=== PATIENT | male | born 1990 ===

== ENCOUNTER 2017-12-13 23:39 | Emergency (ER) | payer SELFPAY ==
[2017-12-13 23:49] VITALS: BMI 23.7
--- NOTE | 2017-12-14 00:13 | ED PDOC ---
Arrival/HPI - General Historian: Patient - History of Present Illness Narrative History of Present Illness (Text): 12/14/17 00:08 42yo male bib EMS for alcohol intoxication. Per EMS patient was found intoxicated on the street and brought to Emergency department. patient admits to drinking alcohol in Emergency department. He denies any drug use. Denies any somatic complaint. <Honey Prince A - Last Filed: 12/15/17 15:36> <Lenard Menjivar - Last Filed: 12/16/17 19:21> - General Chief Complaint: Alcohol Ingestion Past Medical History - Provider Review Nursing Documentation Reviewed: Yes - Infectious Disease Hx of Infectious Diseases: None - Psychiatric Hx Substance Use: (unknown) - Anesthesia Hx Anesthesia: No <Honey Prince A - Last Filed: 12/15/17 15:36> Family/Social History - Physician Review Nursing Documentation Reviewed: Yes Family/Social History: Unknown Family HX Smoking Status: Current Some Days Smoker Hx Alcohol Use: Yes Hx Substance Use: (unknown) <Honey Prince A - Last Filed: 12/15/17 15:36> Allergies/Home Meds <Honey Prince A - Last Filed: 12/15/17 15:36> <Lenard Menjivar - Last Filed: 12/16/17 19:21> Allergies/Adverse Reactions: Allergies Unobtainable Allergy (Verified 12/13/17 23:51) Home Medications: Home Meds Medication Instructions Recorded Confirmed RX: Unobtainable 12/13/17 12/13/17 Review of Systems - Review of Systems Systems not reviewed;Unavailable: Intoxicated <Honey Prince A - Last Filed: 12/15/17 15:36> Physical Exam - Physical Exam Physical Exam Limitations: Intoxication Temperature: Afebrile Blood Pressure: Normal Pulse: Regular Respiratory Rate: Normal Appearance: Positive for: Well-Appearing, Non-Toxic, Comfortable Pain Distress: None Mental Status: Positive for: Alert and Oriented X 3 - Systems Exam Head: Present: Atraumatic, Normocephalic Pupils: Present: PERRL Extroacular Muscles: Present: EOMI Conjunctiva: Present: Normal Mouth: Present: Moist Mucous Membranes Neck: Present: Normal Range of Motion Respiratory/Chest: Present: Clear to Auscultation, Good Air Exchange. No: Respiratory Distress, Accessory Muscle Use Cardiovascular: Present: Regular Rate and Rhythm, Normal S1, S2. No: Murmurs Abdomen: No: Tenderness, Distention, Peritoneal Signs Back: Present: Normal Inspection Upper Extremity: Present: Normal Inspection. No: Cyanosis, Edema Lower Extremity: Present: Normal Inspection. No: Edema Neurological: Present: GCS=15, CN II-XII Intact, Speech Normal Skin: Present: Warm, Dry, Normal Color. No: Rashes Psychiatric: Present: Alert, Oriented x 3, Normal Insight, Normal Concentration <Honey Prince A - Last Filed: 12/15/17 15:36> Vital Signs Temp Pulse Resp BP Pulse Ox 12/14/17 05:57 80 16 143/70 98 12/14/17 03:00 80 16 124/80 99 12/14/17 01:28 89 16 130/73 96 12/14/17 00:28 97.5 F L 86 16 130/78 99 <Lenard Menjivar - Last Filed: 12/16/17 19:21> Medical Decision Making ED Course and Treatment: 12/14/17 00:13 PT presented for stated history. He became uncooperative. Refusing to remove his clothes or stay in Emergency department. Jimmy YI was called and he was placed on 4point restraint for his safety and the safety of ED staffs. Labs Alcohol level UDS Will observe pt in Emergency department for sobriety 12/14/17 01:53 Pt slept calmly in Emergency department. alcohol 128 He will be endorsed to Dr. Menjivar to reassess for sobriety and dispo. <Honey Prince A - Last Filed: 12/15/17 15:36> - Lab Interpretations Lab Results: 12/14/17 00:21 12/14/17 00:21 Lab Results 12/14/17 06:15: Urine Opiates Screen Positive H, Urine Methadone Screen Negative, Ur Barbiturates Screen Negative, Ur Phencyclidine Scrn Positive H, Ur Amphetamines Screen Negative, U Benzodiazepines Scrn Negative, U Oth Cocaine Metabols Negative, U Cannabinoids Screen Positive H 12/14/17 00:21: Alcohol, Quantitative 128 H 12/14/17 00:21: Sodium 146, Potassium 3.7, Chloride 112 H, Carbon Dioxide 20 L, Anion Gap 17, BUN 16, Creatinine 0.9, Est GFR ( Amer) > 60, Est GFR (Non- Af Amer) > 60, Random Glucose 94, Calcium 9.3, Total Bilirubin 0.3, AST 46, ALT 34, Alkaline Phosphatase 54, Total Protein 7.6, Albumin 4.5, Globulin 3.1, A lbumin/Globulin Ratio 1.4 12/14/17 00:21: PT 11.4, INR 1.00, APTT 29.4 12/14/17 00:21: WBC 8.6, RBC 4.68, Hgb 14.9, Hct 40.8 L, MCV 87.2, MCH 31.8, MCHC 36.5, RDW 12.5, Plt Count 227, MPV 9.6, Gran % 52.3, Lymph % (Auto) 39.6 H, Villalba % (Auto) 6.9 H, Eos % (Auto) 1.0 L, Baso % (Auto) 0.2, Gran # 4.51, Lymph # (Auto) 3.4, Villalba # (Auto) 0.6, Eos # (Auto) 0.1, Baso # (Auto) 0.02 <Lenard Menjivar - Last Filed: 12/16/17 19:21> - PA / LINUX SUPPORT ENGINEER / Resident Statement / has reviewed & agrees with the documentation as recorded. <Lenard Menjivar - Last Filed: 12/16/17 19:21> Disposition/Present on Arrival - Present on Arrival Any Indicators Present on Arrival: No History of DVT/PE: No History of Uncontrolled Diabetes: No Urinary Catheter: No History of Decub. Ulcer: No History Surgical Site Infection Following: None - Disposition Have Diagnosis and Disposition been Completed?: Yes Disposition Time: 06:00 Patient Plan: Discharge <Honey Prince - Last Filed: 12/15/17 15:36> <Lenard Menjivar - Last Filed: 12/16/17 19:21> - Disposition Diagnosis: Alcohol intoxication Disposition: HOME/ ROUTINE Condition: IMPROVED Discharge Instructions (ExitCare): Alcohol Abuse and Alcoholism (DC) Additional Instructions: Thank you for letting us take care of you today. The emergency medical care you received today was directed at your acute symptoms. If you were prescribed any medication, please fill it and take as directed. It may take several days for your symptoms to resolve. Return to the Emergency Department if your symptoms worsen, do not improve, or if you have any other problems. Please contact your doctor or call one of the physicians/clinics you have been referred to that are listed on the Patient Visit Information form that is included in your discharge packet. Bring any paperwork you were given at discharge with you along with any medications you are taking to your follow up visit. Our treatment cannot replace ongoing medical care by a primary care provider outside of the emergency department. Thank you for allowing the [facility] team to be part of your care today. Followup with your doctor or our clinic for outpatient care. Referrals: [facility] [Outside] - Follow up with primary Chelsey Gambino MD [Medical Doctor] - Follow up with primary Forms: [employer] (Par[place]ayan)
[2017-12-14 00:48] LABS: BASO # 0.02 K/mm3 (0.0-2.0); BASO % 0.2 % (0.0-3.0); EOS # 0.1 (0.0-0.7); GRAN # 4.51 (1.4-6.5); GRAN % 52.3 % (50.0-68.0); HEMOGLOBIN 14.9 g/dL (14.0-18.0); LYMPH # 3.4 (1.2-3.4); LYMPH % 39.6 % (22.0-35.0); MEAN CELL VOLUME 87.2 fl (80.0-105.0); MEAN CORPUSCULAR HEMOGLOBIN 31.8 pg (25.0-35.0); MEAN CORPUSCULAR HGB CONC 36.5 g/dl (31.0-37.0); MEAN PLATELET VOLUME 9.6 fl (7.0-11.0); MONO # 0.6 (0.1-0.6); MONO % 6.9 % (1.0-6.0); RBC 4.68 10^6/uL (3.5-6.1); RED CELL DISTRIBUTION WIDTH 12.5 % (11.5-14.5); WHITE BLOOD COUNT 8.6 10^3/uL (4.5-11.0)
[2017-12-14 00:56] LABS: ALB/GLOB RATIO 1.4 (1.1-1.8); ALBUMIN 4.5 g/dL (3.0-4.8); ALT/SGPT 34 U/L (7-56); AST/SGOT 46 U/L (17-59); BLOOD UREA NITROGEN 16 mg/dL (7-21); CALCIUM 9.3 mg/dL (8.4-10.5); GFR NON-AFRICAN AMERICAN > 60; PARTIAL THROMBOPLASTIN TIME 29.4 Seconds (25.1-36.5); PROTHROMBIN TIME 11.4 SECONDS (9.4-12.5)
[2017-12-14 06:51] LABS: BARBITURATES, UR NEGATIVE (NEGATIVE); BENZODIAZEPINES, UR NEGATIVE (NEGATIVE); OPIATES, UR POSITIVE (NEGATIVE); PHENCYCLIDINE, UR POSITIVE (NEGATIVE)
[2017-12-14 09:20] VITALS: BP 122/80; PULSE 77; RESP 18; TEMP 98.2; O2SAT 97
== END 2017-12-14 09:17 | disposition home or self-care (01) ==
LOC: ED 23:39
DX: F10.129 Alcohol abuse with intoxication, unspecified (principal); Y90.6 Blood alcohol level of 120-199 mg/100 ml
CPT/HCPCS: 80053; 85025; 85610; 85730; 99285; G0480